=== PATIENT | female | born 1960 | race Caucasian/White ===

== ENCOUNTER → 2017-10-22 | Outpatient (CLI) | payer OTHER ==
[~2017-10-22] MED LIST: AMOX875T60 PO; CLIN300C99 PO; HYDR-3083 PO; HYDR-385 PO; MONT10TA PO; ONDA8TAB94 PO; OXYC-373 PO; OXYC-865 PO; SULF-198 PO
== END ==
LOC: LAB 14:11
PROVIDERS: ATTEND Otolaryngology
DX: J32.9 Chronic sinusitis, unspecified (principal)
CPT/HCPCS: 87071

== ENCOUNTER → 2018-08-23 | Outpatient (CLI) | payer OTHER ==
[~2018-08-23] MED LIST changes: +DOXY-228 PO; +LEVO-85 PO; +METH4TAB66 PO; +TRIA10.8
== END ==
LOC: LAB 09:30
PROVIDERS: ATTEND Otolaryngology
DX: J32.9 Chronic sinusitis, unspecified (principal)
CPT/HCPCS: 87071